=== PATIENT | female | born 1965 | race Caucasian/White ===

== ENCOUNTER 2016-11-12 01:21 | Emergency (ER) | payer BC ==
[2016-11-12 01:34] VITALS: BP 110/72; PULSE 71; TEMP 98; BMI 38.9
--- NOTE | 2016-11-12 01:43 | PDOC ---
History of Present Illness - General Chief Complaint: Edema Stated Complaint: SWELLING RT LEG Time Seen by Provider: 11/12/16 01:25 History Source: Patient - History of Present Illness Occurred: reports: other Lower Extremity Pain Location: right: leg Past History - Past Medical History Allergies/Adverse Reactions: Allergies Allergy/AdvReac Type Severity Reaction Status Date / Time azithromycin [From Zithromax] Allergy Hives Verified 11/12/16 01:29 clindamycin Allergy Hives Verified 11/12/16 01:29 hydromorphone HCl Allergy Hives Verified 11/12/16 01:29 [From Dilaudid] Home Medications: Ambulatory Orders Ibuprofen [Motrin] 800 mg PO TID PRN #60 tablet 11/28/14 Asthma: No Cardiac Disorders: No Diabetes: No GI Disorders: Yes (gerd, colonic polyps, diverticulosis) HTN: No Hypercholesterolemia: No Kidney Stones: No - Surgical History Appendectomy: Yes Cholecystectomy: Yes - Psycho/Social/Smoking Cessation Hx Anxiety: No Suicidal Ideation: No Smoking Status: Yes Smoking History: Current every day smoker Number of Cigarettes Smoked Daily: 20 Information on smoking cessation initiated: No 'Breaking Loose' booklet given: 11/28/14 Hx Alcohol Use: No Drug/Substance Use Hx: No Substance Use Type: None Review of Systems - Review of Systems Constitutional: No: Chills, Fever Respiratory: No: Shortness of Breath Cardiac (ROS): No: Chest Pain, Palpitations *Physical Exam - Vital Signs Last Vital Signs Temp Pulse Resp BP Pulse Ox 98 F 71 20 110/72 98 11/12/16 01:26 11/12/16 01:26 11/12/16 01:26 11/12/16 01:26 11/12/16 01:26 - Physical Exam General Appearance: Yes: Appropriately Dressed. No: Apparent Distress HEENT: positive: Normal Voice Respiratory/Chest: negative: Respiratory Distress Extremity: positive: Swelling. negative: Tender Integumentary: positive: Dry, Warm Neurologic: positive: Fully Oriented, Alert, Normal Mood/Affect ED Treatment Course - RADIOLOGY Radiology Studies Ordered: Category Date Time Status DUPLEX VASCUL US-1 LEG [US] Stat Ultrasound 11/12/16 01:26 Ordered Medical Decision Making - Medical Decision Making 11/12/16 01:40 51 yo F, h/o DVT to LLE >20 years ago, not on blood thinners currently, here w/ atraumatic RLE swelling x 3 weeks. Denies any pain. No cp/sob/palpitations. Pt well ghassan w/ minimal non-pitting edema to RLE. Chest/lungs clear. R/o DVT vs marques's cyst vs dependent edema. US pending 11/12/16 01:57 US read a s neg for DVT. Patient stable for discharge with instructions to elevate the extremity at home and follow-up with PMD 11/12/16 01:58 11/12/16 01:58 *DC/Admit/Observation/Transfer Diagnosis at time of Disposition: Leg swelling - Discharge Dispostion Disposition: HOME Condition at time of disposition: Good - Patient Instructions Additional Instructions: Elevate the extremity at home and follow-up with PMD if symptoms persist
== END 2016-11-12 02:28 | disposition home or self-care (01) ==
LOC: JER 01:21
DX: M79.89 Other specified soft tissue disorders (principal); K21.9 Gastro-esophageal reflux disease without esophagitis; Z86.718 Personal history of other venous thrombosis and embolism; F17.210 Nicotine dependence, cigarettes, uncomplicated
CPT/HCPCS: 93971-TC; 99282-25

== ENCOUNTER 2017-02-24 14:44 | Emergency (ER) | payer BC ==
[2017-02-24 14:48] VITALS: BP 143/75; PULSE 119; TEMP 98.7; BMI 36.9
--- NOTE | 2017-02-24 14:58 | PDOC ---
History of Present Illness - General Chief Complaint: Laceration Stated Complaint: LACERATION Time Seen by Provider: 02/24/17 14:52 History Source: Patient Exam Limitations: No Limitations - History of Present Illness Initial Comments: 02/24/17 14:53 CHIEF COMPLAINT: HISTORY OF PRESENT ILLNESS: Patient is a 51 -year-old F of DVT, appendectomy, cholecystectomy. Status post fall, tripped and fell upstairs. Hitting nasal bridge on concrete floor. No LOC. Laceration noted to bridge of nose with swelling. No nausea vomiting, no unsteady gait, no dizziness, no visual disturbance. MEDS: None ALLERGIES: Azithromycin, clindamycin, hydromorphone PCP: Robert REVIEW OF SYSTEMS: GENERAL/CONSTITUTIONAL: Awake alert and oriented HEAD, EYES, EARS, NOSE AND THROAT: No change in vision. Laceration to bridge of nose, swelling. Midface stable. RESPIRATORY: No cough, wheezing, or hemoptysis. CARDIAC: Denies chest pain, no shortness of breathe. MUSCULOSKELETAL: No spinal point tenderness, Good ROM to all four extremeties. NO CVA tenderness. No lateral neck pain. GI/: Denies abdominal pain, no nausea or vomiting, no bloody stool, no Hematuria. SKIN : No erythema or bruising noted. No abrasion or lacerations. NEUROLOGIC: No loss of consciousness, no numbness or tingling. PHYSICAL EXAM: GENERAL: Awake and alert and oriented x3. EYES: The pupils are equal, round, and reactive to light, with clear, conjunctiva. Good extraocular movement. No nystagmus NOSE: No nasal trauma . Midface stable edema, laceration to bridge of nose. MOUTH: Teeth intact. EARS: The ear canals and tympanic membranes are normal without trauma. No drainage. NECK: No Lower cervical C-spine tenderness, no pain with chin to chest. CHEST: The lungs are clear without crackles, or wheezes. No subcutaneous emphysema. No crepitus. HEART: Heart is regular rhythm, with normal S1 and S2, no murmurs. ABDOMEN: The abdomen is soft and nontender with normal bowel sounds. There is no guarding or rebound. MUSCULOSKELETAL: No spinal point tenderness. No bruising or erythema. Pelvis stable. RECTAL: Patient refused. EXTREMITIES: Extremities are normal. No visible traumatic injury. NEUROLOGICAL:Mental status: The patient is oriented x3. No Generalized headache , Romberg - Cranial nerves: Cranial nerves II through XII are intact Motor: The upper extremities are 5 over 5 in all muscle groups. The lower extremities are 5 over 5 in all muscle groups. Sensation: Sensation is intact to light touch throughout. Cerebellar: Byetvl-[id number]-[id number] is normal in both upper extremities. Heel-knee- campoverde is normal in both lower extremities. Reflexes: 2+ and symmetric in the upper and lower extremities. Gait: Normal. Heel and toe walking are normal. Tandem gait is normal. SKIN: Edema to bridge of nose. Flap laceration to bridge of nose. 02/24/17 14:57 Past History - Past Medical History Allergies/Adverse Reactions: Allergies Allergy/AdvReac Type Severity Reaction Status Date / Time azithromycin [From Zithromax] Allergy Hives Verified 02/24/17 14:48 clindamycin Allergy Hives Verified 02/24/17 14:48 hydromorphone HCl Allergy Hives Verified 02/24/17 14:48 [From Dilaudid] Home Medications: Ambulatory Orders NK [No Known Home Medication] 02/24/17 Asthma: No Cardiac Disorders: No Diabetes: No GI Disorders: Yes (gerd, colonic polyps, diverticulosis) HTN: No Hypercholesterolemia: No Kidney Stones: No Other medical history: DVT - Surgical History Appendectomy: Yes Cholecystectomy: Yes - Psycho/Social/Smoking Cessation Hx Anxiety: No Suicidal Ideation: No Smoking Status: Yes Smoking History: Current every day smoker Number of Cigarettes Smoked Daily: 20 Information on smoking cessation initiated: Yes 'Breaking Loose' booklet given: 02/24/17 Hx Alcohol Use: No Drug/Substance Use Hx: No Substance Use Type: None *Physical Exam - Vital Signs Last Vital Signs Temp Pulse Resp BP Pulse Ox 98.7 F 119 H 20 143/75 97 02/24/17 14:44 02/24/17 14:44 02/24/17 14:44 02/24/17 14:44 02/24/17 14:44 Procedures - Laceration/Wound Repair Nose Wound Length: to 2.5 cm Wound Explored: clean Wound's Depth, Shape: superficial, irregular Wound Repaired With: Dermabond Progress: 02/24/17 19:13 Steri-Strips placed for stability ED Treatment Course - RADIOLOGY Radiology Studies Ordered: Category Date Time Status FACIAL BONES CT W/O CONTRAST [CT] Stat CT Scan 02/24/17 14:52 Ordered Medical Decision Making - Medical Decision Making 02/24/17 14:57 A/P: Accidental trip and fall. Injury to bridge of nose. Patient with significant edema to bridge, sent for CT of facial bones. CT is negative for acute fracture. Nasal injury cleansed, patient is up-to-date with tetanus. Dermabond and Steri-Strips placed on with good result. Patient was satisfied with cosmesis chance of scarring described patient, she verbalized understanding. Motrin given for pain. Instructions for care given to patient. I discussed the physical exam findings, ancillary test results and final diagnoses with the patient. I answered all of the patient's questions. The patient was satisfied with the care received and felt comfortable with the discharge plan and treatment plan. The patient will call to arrange follow-up and will return to the Emergency Department with any new, persistent or worsening symptoms. *DC/Admit/Observation/Transfer Diagnosis at time of Disposition: Accidental fall Qualifiers: Encounter type: initial encounter Qualified Code(s): W19.XXXA - Unspecified fall, initial encounter Nasal trauma Qualifiers: Encounter type: initial encounter Qualified Code(s): S09.92XA - Unspecified injury of nose, initial encounter - Discharge Dispostion Disposition: HOME Condition at time of disposition: Good Admit: No - Referrals Referrals: Frances Jones MD [Primary Care Provider] - - Patient Instructions Printed Discharge Instructions: DI for Laceration Repair With Dermabond Additional Instructions: Keep area clean dry and intact Keep dressing on, allow Steri-Strips to fall off on their own If any increased bleeding through the dressing return immediately to emergency department Please return immediately to emergency department with any increased redness, swelling, signs of infection
[2017-02-24] MEDS ORDERED: IBUPROFEN 600 MG TABLET (FP) PO ONE ×2 (15:57→15:58)
== END 2017-02-24 16:30 | disposition home or self-care (01) ==
LOC: JERFT 14:44
PROC: 09QKXZZ Repair Nasal Mucosa and Soft Tissue, External Approach (ICD-10-PCS; principal; 2017-02-24)
DX: S01.21XA Laceration without foreign body of nose, initial encounter (principal); W10.8XXA Fall (on) (from) other stairs and steps, initial encounter; Y93.89 Activity, other specified; Y92.89 Other specified places as the place of occurrence of the external cause; F17.210 Nicotine dependence, cigarettes, uncomplicated; Z86.718 Personal history of other venous thrombosis and embolism; Z87.19 Personal history of other diseases of the digestive system
CPT/HCPCS: 70486-TC; 99281-25

== ENCOUNTER 2017-10-16 18:26 | Emergency (ER) | payer BC ==
[2017-10-16 18:37] VITALS: BP 126/66; PULSE 91; TEMP 98; BMI 40.6
--- NOTE | 2017-10-16 18:37 | PDOC ---
Rapid Medical Evaluation Time Seen by Provider: 10/16/17 18:32 Medical Evaluation: Allergies Allergy/AdvReac Type Severity Reaction Status Date / Time azithromycin [From Zithromax] Allergy Hives Verified 02/24/17 14:48 clindamycin Allergy Hives Verified 02/24/17 14:48 hydromorphone HCl Allergy Hives Verified 02/24/17 14:48 [From Dilaudid] 10/16/17 18:32 The patient presents with a chief complaint of: [Right posterior lower leg pain x 3 weeks. Worse in the last day. + swelling nonpitting. H/O DVT. NO Chest pain or SOB. ] I have performed a brief in-person evaluation of this patient. Pertinent physical exam findings: VSS, RLE edema, pain to posterior knee with veins visible. I have ordered the following: [RLE doppler. ] The patient will proceed to the ED for further evaluation. Discharge Disposition - Diagnosis Leg swelling - Referrals Referrals: Frances Jones MD [Primary Care Provider] - - Patient Instructions - Post Discharge Activity
--- NOTE | 2017-10-16 18:55 | PDOC ---
History of Present Illness - General Chief Complaint: Pain, Acute Stated Complaint: LEG PAIN Time Seen by Provider: 10/16/17 18:32 Past History - Past Medical History Allergies/Adverse Reactions: Allergies Allergy/AdvReac Type Severity Reaction Status Date / Time azithromycin [From Zithromax] Allergy Hives Verified 10/16/17 18:32 clindamycin Allergy Hives Verified 10/16/17 18:32 hydromorphone HCl Allergy Hives Verified 10/16/17 18:32 [From Dilaudid] Home Medications: Ambulatory Orders NK [No Known Home Medication] 02/24/17 Asthma: No Cardiac Disorders: No COPD: No DVT: No Diabetes: No GI Disorders: Yes (gerd, colonic polyps, diverticulosis) HTN: No Hypercholesterolemia: No Kidney Stones: No - Surgical History Appendectomy: Yes Cholecystectomy: Yes - Immunization History Immunization Up to Date: Yes - Suicide/Smoking/Psychosocial Hx Smoking Status: Yes Smoking History: Current every day smoker Number of Cigarettes Smoked Daily: 20 Information on smoking cessation initiated: No 'Breaking Loose' booklet given: 02/24/17 Hx Alcohol Use: No Drug/Substance Use Hx: No Substance Use Type: None *Physical Exam - Vital Signs Last Vital Signs Temp Pulse Resp BP Pulse Ox 98.0 F 91 H 16 126/66 99 10/16/17 18:33 10/16/17 18:33 10/16/17 18:33 10/16/17 18:33 10/16/17 18:33 *DC/Admit/Observation/Transfer Diagnosis at time of Disposition: Solomon's cyst Qualifiers: Laterality: right Qualified Code(s): M71.21 - Synovial cyst of popliteal space [Solomon], right knee - Discharge Dispostion Disposition: HOME Condition at time of disposition: Stable Admit: No - Referrals Referrals: Frances Jones MD [Primary Care Provider] - Elias Preciado MD [Staff Physician] - - Patient Instructions Printed Discharge Instructions: Bakers Cyst Additional Instructions: Your ultrasound shows a solomon's cyst. It is negative for DVT at this time. Take Motrin as needed for pain. Wear an eddie wrap for comfort. Keep your leg elevated when resting. Follow up with ortho in 3-5 days if your symptoms do not improve. Return to the ED if the swelling/pain gets worse, if you have numbness and tingling, or have any changes in your symptoms. - Post Discharge Activity
== END 2017-10-16 19:31 | disposition home or self-care (01) ==
LOC: JER 18:26 → JERFT 18:26
DX: M71.21 Synovial cyst of popliteal space [Baker], right knee (principal); K21.9 Gastro-esophageal reflux disease without esophagitis; F17.210 Nicotine dependence, cigarettes, uncomplicated
CPT/HCPCS: 93971-TC; 99281-25

== ENCOUNTER 2022-10-04 04:29 | Day surgery (SDC) | payer BC ==
[2022-09-29 15:56] VITALS: BMI 35.0
[2022-10-04] MEDS ORDERED: KETAMINE HCL 500 MG/10 ML VIAL ONE (07:57)
[2022-10-04 08:49] VITALS: TEMP 98
[2022-10-04 09:35] VITALS: BP 137/77; PULSE 78; RESP 15
== END 2022-10-04 09:57 | disposition home or self-care (01) ==
LOC: JASU-ENDO 04:29
PROVIDERS: ATTEND Internal Medicine Gastroenterology
PROC: 0DBL8ZX Excision of Transverse Colon, Via Natural or Artificial Opening Endoscopic, Diagnostic (ICD-10-PCS; 2022-10-04)
PROC: 0D5N8ZZ Destruction of Sigmoid Colon, Via Natural or Artificial Opening Endoscopic (ICD-10-PCS; principal; 2022-10-04 08:00)
DX: Z12.11 Encounter for screening for malignant neoplasm of colon (principal); D12.5 Benign neoplasm of sigmoid colon; D12.3 Benign neoplasm of transverse colon; K64.8 Other hemorrhoids; K57.30 Diverticulosis of large intestine without perforation or abscess without bleeding
CPT/HCPCS: 82962; 88305-TC

== ENCOUNTER 2023-03-28 07:12 | Emergency (ER) | payer BC ==
[2023-03-28 07:23] VITALS: BP 110/65; PULSE 84; RESP 16; TEMP 98.3; BMI 36.3
== END 2023-03-28 13:37 | disposition home or self-care (01) ==
LOC: JERFT 07:12
DX: S20.212A Contusion of left front wall of thorax, initial encounter (principal); W01.0XXA Fall on same level from slipping, tripping and stumbling without subsequent striking against object, initial encounter
CPT/HCPCS: 71101-TC-LT-FY; 71250-TC; 99284-25

== ENCOUNTER 2023-04-11 07:49 | Emergency (ER) | payer BC, OTHER ==
[2023-04-11 07:58] VITALS: BP 103/65; PULSE 81; RESP 20; TEMP 98; BMI 36.3
== END 2023-04-11 10:08 | disposition home or self-care (01) ==
LOC: JER 07:49
DX: S22.32XA Fracture of one rib, left side, initial encounter for closed fracture (principal); R10.13 Epigastric pain; R10.12 Left upper quadrant pain; X58.XXXA Exposure to other specified factors, initial encounter
CPT/HCPCS: 74176-TC; 99284-25

== ENCOUNTER 2023-07-19 11:47 | Emergency (ER) | payer BC ==
[2023-07-19 11:53] VITALS: BP 129/80; PULSE 99; RESP 18; TEMP 97.1; BMI 34.8
[2023-07-19 12:34] LABS: BASO % 0.5 % (0-2.0); EOS % 0.6 % (0-4.5); HEMATOCRIT 44.9 % (32.4-45.2); LYMPH % 16.6 % (8-40); MCH 29.3 pg (25.7-33.7); MCHC 33.4 g/dl (32.0-36.0); MEAN CELL VOLUME 87.6 fl (80-96); MEAN PLT VOLUME 9.5 fl (7.5-11.1); MONO % 6.3 % (3.8-10.2); PLATELET COUNT 215 10^3/uL (134-434); RBC 5.13 M/mm3 (3.60-5.2); RDW 13.8 % (11.6-15.6); WHITE BLOOD COUNT 12.6 K/mm3 (4.0-10.0)
[2023-07-19 12:47] LABS: INR 1.16 (0.83-1.09); PROTHROMBIN TIME (PATIENT) 13.4 SEC (9.7-13.0)
[2023-07-19 12:49] LABS: PH,URINE 5.5 (5.0-8.0); URINE APPEARANCE CLEAR; URINE BILIRUBIN NEGATIVE (NEGATIVE); URINE COLOR YELLOW; URINE GLUCOSE (UA) NEGATIVE (NEGATIVE); URINE KETONE NEGATIVE (NEGATIVE); URINE LEUK ESTERASE NEGATIVE (NEGATIVE); URINE NITRITE NEGATIVE (NEGATIVE); URINE PROTEIN NEGATIVE (NEGATIVE); URINE UROBILINOGEN 0.2 mg/dL (0.2-1.0)
[2023-07-19 12:50] LABS: ACTIVATED PTT 28.1 SECONDS (25.2-36.5); POTASSIUM 3.8 mmol/L (3.5-5.1)
[2023-07-19 12:51] LABS: CALCIUM 8.9 mg/dL (8.5-10.1)
[2023-07-19 12:52] LABS: ALBUMIN 3.7 g/dl (3.4-5.0)
[2023-07-19 12:55] LABS: CREATININE 0.7 mg/dL (0.55-1.3)
[2023-07-19 12:57] LABS: TOT PROT 7.6 g/dl (6.4-8.2)
[2023-07-19] MEDS ORDERED: AMOX TR/POT CLAV 875MG/125MG TABLETS (FP) PO ONE (15:06)
[2023-07-19] MEDS ORDERED: FLUCONAZOLE 50 MG TABLET PO ONE (15:08)
[2023-07-19] MEDS ORDERED: FLUCONAZOLE 150 MG TABLET PO ONE (15:12)
[2023-07-19] MEDS ORDERED: AMOX TR/POT CLAV 875MG/125MG TABLETS (FP) ONE (15:13)
== END 2023-07-19 15:40 | disposition home or self-care (01) ==
LOC: JER 11:47
DX: R10.32 Left lower quadrant pain (principal); R63.0 Anorexia; K57.92 Diverticulitis of intestine, part unspecified, without perforation or abscess without bleeding
CPT/HCPCS: 36415; 74177-TC; 80053; 81003; 83605; 85025; 85610; 85730; 86850; 86900; 86901; 87086; 99285-25; Q9967